=== PATIENT | male | born 1990 | race Two or more races ===

== ENCOUNTER 2021-03-06 17:14 | Emergency (ER) | payer OTHER ==
[~2021-03-06] VITALS: Ht 172.7 cm; Wt 65.8 kg
[2021-03-06 23:18] VITALS: BP 111/78
== END 2021-03-06 23:31 | disposition home or self-care (01) ==
LOC: EEVIPCON 17:14 → ER 17:14
DX: S01.511A Laceration without foreign body of lip, initial encounter (principal); X58.XXXA Exposure to other specified factors, initial encounter; Y93.89 Activity, other specified; Y92.89 Other specified places as the place of occurrence of the external cause; Y99.8 Other external cause status
CPT/HCPCS: 12013